=== PATIENT | male | born 1995 | race Caucasian/White ===

== ENCOUNTER 2020-01-30 23:43 | Inpatient (IN) | payer SELFPAY ==
[~2020-01-30] VITALS: Ht 170.2 cm; Wt 55.9 kg
[2020-01-30 23:45] VITALS: Ht 170.2 cm; Wt 55.9 kg
--- NOTE | 2020-01-31 00:03 | NUR ---
PT MEDICATED PER MD ORDER. REMAINS ON FULL DEVULCANIZER CHARGER AND PULSE OX. PT IS IN BED 4 FOR PT SAFETY IN DIRECT SIGHT OF NURSE'S STATION.
--- NOTE | 2020-01-31 00:08 | NUR ---
PT BROUGHT IN BY AMBULANCE TO ED S/P BEING FOUND IN NEIGHBOR'S YARD TAKING HIS CLOTHES OFF, PER MEDIC. PT ADMITS TO USING METH AND HEROINE YESTERDAY BUT DENIES DRUG USE AT THIS TIME. PT APPEARS ANXIOUS, SPEAKING ERRATICALLY, A&OX2, ORIENTED TO SELF AND PLACE. PT IS UNABLE TO RECALL THE YEAR OR RECALL THE SITUATION LEADING UP TO HOSPITALIZATION. PT DENIES ALCOHOL CONSUMPTION, DENIES SI/HI. ATTEMPTED TO RE-ORIENT PT, DECREASED ENVIRONMENTAL STIMULI TO CALM PT. PT IS ON FULL RIGGING FOREMAN AND PULSE OX. PT IS IN BED 4 FOR PT SAFETY IN DIRECT SIGHT OF NURSE'S STATION. MSE COMPLETED BY DR. ELLIS.
--- NOTE | 2020-01-31 00:34 | NUR ---
PT SPO2 NOTED TO BE 92% WHILE SLEEPING. PT PLACED ON 2LITERS VIA NC. SPO2 NOW 99%.
--- NOTE | 2020-01-31 01:13 | NUR ---
PT RESTING IN [facility], RESP E/U, IN DIRECT SIGHT OF NURSE'S STATION.
--- NOTE | 2020-01-31 01:41 | NUR ---
PT NOTED TO BE HYPOTENSIVE, REPOSITIONED PT, AND REMAINED HYPOTENSIVE. PT ONLY RESPONSIVE TO PAINFUL STIMULI. DR. ELLIS AWARE. PER DR. ELLIS TO INITIATE IV ACCESS.
[2020-01-31 01:55] LABS: BASOPHIL % 1.2 % (0-2); PLATELET COUNT 179 x10^3mcL (130-400); RED CELL DISTRIBUTION WIDTH 12.5 % (11.5-14.5)
--- NOTE | 2020-01-31 02:10 | NUR ---
PT MEDICATED FOR HYPOTENSION PER MD ORDER. PT REMAINS ON FULL EXTRACTION MACHINE OPERATOR AND PULSE OX.
[2020-01-31 02:11] LABS: ALBUMIN 3.6 g/dL (3.4-5.0); ALKALINE PHOSPHATASE 68 U/L (46-116); ALT/SGPT 21 U/L (16-63); AST/SGOT 38 U/L (15-37); BILIRUBIN TOTAL 0.53 mg/dL (0.20-1.00); CALCIUM 8.3 mg/dL (8.5-10.1); CARBON DIOXIDE 28.3 mmol/L (21-32); CHLORIDE SERUM 105 mmol/L (98-107); CREATININE SERUM 0.9 mg/dL (0.7-1.3); GFR1 > 60 mL/min; GLUCOSE SERUM 125 mg/dL (74-106); SODIUM SERUM 143 mmol/L (136-145); TOTAL PROTEIN, SERUM 6.5 g/dL (6.4-8.2)
[2020-01-31 02:18] LABS: POTASSIUM SERUM 2.8 mmol/L (3.5-5.1)
[2020-01-31 02:26] LABS: microscopic required? NO
--- NOTE | 2020-01-31 02:26 | NUR ---
URINE SAMPLE AND COVID BARB SPECIMEN WALKED OVER TO LAB.
[2020-01-31 02:32] LABS: urine erythrocyte NEGATIVE (NEGATIVE)
[2020-01-31 02:48] LABS: AMPHETAMINE QUAL UR POSITIVE (See below)
--- NOTE | 2020-01-31 02:49 | NUR ---
PER LAB TALIA, PATIENT IS COVID-BARB NEGATIVE.
--- NOTE | 2020-01-31 03:09 | NUR ---
PATIENT REFUSING TO PROVIDE IV ACCESS FOR MEDICATION ADMINISTRATION. DR. ELLIS AWARE.
--- NOTE | 2020-01-31 03:25 | NUR ---
PT NO LONGER AGITATED, RESTING IN GURNEY, RESP E/U, REMAINS ON FULL BEAD TRIMMER AND PULSE OX.
--- NOTE | 2020-01-31 04:44 | NUR ---
PT RESTING IN GURNEY. RESP E/U. PT IS CALM AND COOPERATIVE AT THIS TIME. NAD NOTED. REMAINS ON FULL UNIFORMS SALES REPRESENTATIVE AND PULSE OX.
--- NOTE | 2020-01-31 06:07 | NUR ---
PATIENT RESTING IN GURNEY, RESP E/U. PATIENT IS CALM AT THIS TIME, NAD NOTED.
--- NOTE | 2020-01-31 06:13 | NUR ---
PT RESTING IN [facility] IN DIRECT SIGHT OF NURSE'S STATION. RESP E/U.
--- NOTE | 2020-01-31 06:45 | NUR ---
PATIENT RESTING IN GURNEY, RESPONDING TO VERBAL STIMULI, SPEAKING IN FULL CLEAR SENTENCES, RESP E/U. PATIENT IS CALM AND COOPERATIVE AT THIS TIME.
--- NOTE | 2020-01-31 06:50 | NUR ---
5AM BLOOD DRAWN AND WALKED OVER TO LAB. RECEPTED BY [facility].
--- NOTE | 2020-01-31 07:20 | NUR ---
REPORT RECIEVED FROM BAL RODRÍGUEZ. I WILL ASSUME FURTHER CARE OF THIS PT
--- NOTE | 2020-01-31 07:29 | NUR ---
REPORT GIVEN TO SIMONA SELBY AND ALLAN SELBY TO ASSUME CARE OF PT.
--- NOTE | 2020-01-31 07:47 | NUR ---
SPOKE TO ALEXANDER MCKEON, SHE WILL CANCEL ORDER FOR POTASSIUM ORDERED AT 0500 THIS MORNING AND ORDER LABS TO RECHECK POTASSIUM LEVELS
--- NOTE | 2020-01-31 07:50 | NUR ---
PT NOTED SLEEPING IN ER [place] AT THIS TIME. PT APPEARS CALM AT THIS TMIE, NO DISTRESS NOTED. VITAL SIGNS STABLE. PT IN FULL VIEW OF NURSES STATION, SI/HI PRECAUTIONS IN PLACE. PT AWAITING SITTER AT THIS TIME. WILL CONTINUE TO MONITOR
--- NOTE | 2020-01-31 08:20 | NUR ---
REPORT CALLED TO BAL SERVIN. SHE WILL ASSUME FURTHER CARE OF THIS PT
--- NOTE | 2020-01-31 08:30 | NUR ---
RECEIVED PT FROM ER. PT DROWSY BUT AROUSABLE TO VOICE. A/OX2, ABLE TO COMMUNICATE PERSON AND PLACE. UNABLE TO FOLLOW COMMANDS. FALLS BACK ASLEEP EASILY. TELE#[id number]. RESPIRATIONS EQUAL AND UNLABORED ON RA. DENIES ANY SOB. PT DENIES ANY PAIN AT THIS TIME. UNSTEADY GAIT, FALL PRECAUTIONS IN PLACE. PT CALM AT THIS TIME. NO EPISODES OF AGITATION NOTED. PT UNCOOPERATIVE WITH ANSWER QUESTIONS, ANSWERS FEW AND FALLS BACK TO SLEEP. IV TO LAC FLUSHING WELL, NO REDNESS OR SWELLING NOTED. SITTER AT BEDSIDE. WILL CONTINUE TO MONITOR. CALL LIGHT IN REACH. BED IN LOWEST POSITION.
[2020-01-31 10:00] LABS: CALCIUM 7.4 mg/dL (8.5-10.1); CARBON DIOXIDE 25.6 mmol/L (21-32); CHLORIDE SERUM 109 mmol/L (98-107); CREATININE SERUM 0.7 mg/dL (0.7-1.3); GFR1 > 60 mL/min; GLUCOSE SERUM 70 mg/dL (74-106); POTASSIUM SERUM 4.1 mmol/L (3.5-5.1); SODIUM SERUM 142 mmol/L (136-145)
[2020-01-31 12:28] VITALS: BP 107/55
--- NOTE | 2020-01-31 12:40 | NUR ---
PT SITTING UP IN BED EATING LUNCH. PT ABLE TO ANSWER PERSON, PLACE, AND DATE. ASKED PT ABOUT MEDICAL HX, PT REPORTS HX OF SEIZURES BUT WHEN ASKED WHEN LAST SEIZURE WAS PT UNABLE TO ANSWER. SEIZURE PRECAUTIONS IN PLACE. PT FELL BACK ASLEEP RIGHT AFTER. SITTER AT BEDSIDE. WILL CONTINUE TO MONITOR. CALL LIGHT IN REACH. BED IN LOWEST POSITION.
[2020-01-31 12:57] VITALS: BP 99/53
--- NOTE | 2020-01-31 14:34 | NUR ---
Discount pharmacy card and list to low cost medical clinics given to patient.
[2020-01-31 17:01] VITALS: BP 111/55
--- NOTE | 2020-01-31 17:41 | NUR ---
CHARGE NURSE FRANKY SPOKE WITH MOM, PER MOM WOULD LIKE TO BE NOTIFIED IF DISCHARGE TO PICK PT UP, MOM, TYRELL WONG .
[2020-01-31 19:25] VITALS: BP 103/47
--- NOTE | 2020-01-31 19:25 | NUR ---
RECEIVED PT ASLEEP ,APPEARS DROWSY WHEN AWAKENED .VERBALLY RESPONSIVE AND FALLS BACK ASLEEP IN MIDDLE OF CONVERSATION.ON SEIZURE PRECAUTION.PADDED RAILS IN PLACED.BP 103/47 MMHG,HR 56.BED ALARM ON AT ALL TIMES.REPORTS OF UNSTEADY AND WOBBLY GAIT.WILL CONTINUE TO MONITOR.
--- NOTE | 2020-02-01 04:50 | NUR ---
PT SLEPT WELL .NO AGITATION NOTED.NO SEIZURE ACTIVITY NOTED.SEIZURE PADS IN PLACED.BEDALARM ON AT ALL TIMES.ALL NEEDS MET.WILL CONTINUE TO MONITOR.
[2020-02-01 05:57] VITALS: BP 103/51
[2020-02-01 07:36] LABS: BASOPHIL % 0.7 % (0-2); RED CELL DISTRIBUTION WIDTH 13.8 % (11.5-14.5)
--- NOTE | 2020-02-01 07:44 | NUR ---
RECEIVED PATIENT FROM BAL CIFUENTES. PATIENT IN BED AT THIS TIME, AWAKE AND EATING BREAKFAST TRAY. STATES THAT HE WOULD LIKE TO SIGN OUT AMA. SPOKE WITH PATIENT THAT WE WOULD NEED TO HAVE RESIDENTS COME AND SPEAK WITH HIM. WILL PAGE DR VILLAFUERTE, CHARGE NURSE FRANKY NOTIFIED. PER BAL CIFUENTES, MOTHER TYRELL WOULD LIKE TO PICK PATIENT UP UPON DISCHARGE, WILL ATTEMPT TO CONTACT HER IF PATIENT DECIDES TO AMA. CALL LIGHT IN REACH, SITTER AT BEDSIDE.
--- NOTE | 2020-02-01 08:00 | NUR ---
ATTEMPTED TO CONTACT DR VILLAFUERTE VIA [employer] LINE, PERSON ON PHONE STATES THAT DR VILLAFUERTE IS NOT AUTOMATIC BUFFER TODAY. CALLED RESIDENT PHONE AND DR GOMEZ STATES DR VILLAFUERTE IS HERE TODAY, IS TAKEN PATIENTS AND IS IN A MEETING. WILL ATTEMPT TO CALL DR VILLAFUERTE AGAIN FOR AMA. COURTESY CALL PLACED TO MOTHER TYRELL, NO ANSWER, VM LEFT AT THIS TIME.
--- NOTE | 2020-02-01 08:10 | NUR ---
PAGED AND SPOKE WITH DR VILLAFUERTE, AND MADE AWARE. WILL HAVE PATIENT SIGN OUT AMA AND GATHER BELONGINGS.
[2020-02-01 08:13] LABS: CALCIUM 8.4 mg/dL (8.5-10.1); CARBON DIOXIDE 25.5 mmol/L (21-32); CHLORIDE SERUM 107 mmol/L (98-107); CREATININE SERUM 0.6 mg/dL (0.7-1.3); GFR1 > 60 mL/min; GLUCOSE SERUM 75 mg/dL (74-106); MAGNESIUM 2.4 mg/dL (1.8-2.4); PHOSPHOROUS 2.8 mg/dL (2.5-4.9); POTASSIUM SERUM 3.7 mmol/L (3.5-5.1); SODIUM SERUM 140 mmol/L (136-145)
[2020-02-01 08:21] VITALS: BP 104/49
--- NOTE | 2020-02-01 09:27 | NUR ---
PATIENT HAS SIGNED OUT AMA. PATIENT WITH BELONGINGS ESCORTED DOWNSTAIRS TO [facility]. TELEMETRY BOX REMOVED AND RETURNED TO [facility], IV CATHETER REMOVED AND INTACT.
[2020-02-01 11:50] LABS: PLATELET COUNT 165 x10^3mcL (130-400)
== END 2020-02-01 09:30 | disposition left against medical advice (07) | DRG 640 ==
LOC: ED 23:43 → DU 01-31 03:21
PROVIDERS: Emergency Medicine; ADMIT Internal Medicine; ATTEND Internal Medicine
DX: E87.6 Hypokalemia (principal); G92 Toxic encephalopathy; F41.9 Anxiety disorder, unspecified; F19.10 Other psychoactive substance abuse, uncomplicated; Z20.828 Contact with and (suspected) exposure to other viral communicable diseases; Z79.899 Other long term (current) drug therapy
CPT/HCPCS: G0378; G0480; J1630; J2250; J3475; J3480; J7030; J7050; Q0092; U0003-CS